=== PATIENT | male | born 1965 | race Caucasian/White ===

== ENCOUNTER 2018-04-30 12:04 | Emergency (ER) | payer OTHER ==
[~2018-04-30] VITALS: Ht 190.5 cm; Wt 85.1 kg
[2018-04-30] MEDS ORDERED: MEDROL DOSEPAK4 MG PO (15:44)
[2018-04-30 15:53] VITALS: BP 132/86
== END 2018-04-30 15:54 | disposition home or self-care (01) ==
LOC: EME 12:04
DX: M51.26 Other intervertebral disc displacement, lumbar region (principal)
CPT/HCPCS: 72131; 99281; 99284; J1885; J7512